=== PATIENT | male | born 1970 | race African-American/Black ===

== ENCOUNTER 2022-10-27 20:19 | Emergency (ER) | payer MEDICAID, OTHER ==
[~2022-10-27] VITALS: Ht 188 cm; Wt 118.6 kg
[2022-10-27] MEDS ORDERED: ASPIRIN 81MG TABLET PO ONE (21:15)
[2022-10-27 21:28] LABS: BASOPHILS % 0.6 % (0.0-2.0); EOSINOPHILS % 2.8 % (0.0-5.0); HEMATOCRIT. 42.2 % (42.0-52.0); HEMOGLOBIN. 14.2 g/dL (14.0-18.0); LYMPHOCYTES % 38.2 % (20.0-50.0); MEAN CORPUSCULAR HEMOGLOBIN 29.1 pg (28.0-32.0); MEAN CORPUSCULAR VOLUME 86.3 fL (80.0-94.0); MONOCYTES % 6.1 % (2.0-8.0); NEUTROPHILS % 52.3 % (40.0-76.0); PLATELET 261 x1000/uL (130-400); RED BLOOD CELL COUNT 4.89 mill/uL (4.7-6.1); RED CELL DISTRIBUTION WIDTH 13.6 % (11.6-14.6)
[2022-10-27 21:36] LABS: CHLORIDE 109 mEq/L (98-107)
[2022-10-27 21:45] LABS: ETHANOL BLOOD < 10 mg/dL
[2022-10-27 22:00] LABS: *AMPHETAMINES SCREEN URINE NEGATIVE (NEGATIVE); *BARBITURATES SCREEN URINE NEGATIVE (NEGATIVE); *BENZODIAZEPINES SCREEN URINE NEGATIVE (NEGATIVE); *COCAINE SCREEN URINE NEGATIVE (NEGATIVE); CANNABINOID URINE SCREEN NEGATIVE (NEGATIVE); METHADONE URINE SCREEN NEGATIVE (NEGATIVE); OPIATES URINE SCREEN NEGATIVE (NEGATIVE); PHENCYCLIDINE URINE SCREEN NEGATIVE (NEGATIVE)
[2022-10-27] MEDS ORDERED: IBUP-2029 MT (23:56)
[2022-10-27] MEDS ORDERED: BENZ200C52 MT (23:56)
[2022-10-28] VITALS: BP 139/79
== END 2022-10-28 00:05 | disposition home or self-care (01) ==
LOC: ER 20:19
DX: R07.89 Other chest pain (principal)
CPT/HCPCS: 36415; 71045; 80053; 80305; 80320; 83880; 84484; 85025; 93005; 99291; Z7610; G0480

== ENCOUNTER 2023-07-28 20:27 | Emergency (ER) | payer MEDICAID, OTHER ==
[~2023-07-28] VITALS: Ht 188 cm; Wt 112.0 kg
[~2023-07-28 20:27] MED LIST: BENZ200C52 MT; IBUP-2029 MT
[2023-07-28 21:37] VITALS: BP 231/114; PULSE 81; RESP 18; TEMP 99.4; O2SAT 100
[2023-07-28] MEDS ORDERED: KETOROLAC 15MG/ML VIAL IM ONE (22:00)
[2023-07-28] MEDS ORDERED: NAPR-1176 MT (23:06)
== END 2023-07-29 00:28 | disposition home or self-care (01) ==
LOC: ER 20:27
DX: M25.561 Pain in right knee (principal); E78.00 Pure hypercholesterolemia, unspecified; I10 Essential (primary) hypertension
CPT/HCPCS: 73562; 96372; 99283; J1885; Z7610 ×2

== ENCOUNTER 2024-06-12 10:01 | Emergency (ER) | payer MEDICAID ==
[~2024-06-12] VITALS: Ht 188 cm; Wt 113.3 kg
[~2024-06-12 10:01] MED LIST changes: +NAPR-1176 MT
[2024-06-12 10:40] VITALS: O2SAT 98
[2024-06-12] MEDS: KETOROLAC 15MG/ML VIAL IM ONE (11:23)
[2024-06-12] MEDS ORDERED: LIDO700A15 TP (11:58)
[2024-06-12 12:23] VITALS: BP 113/55; PULSE 78; RESP 18; TEMP 36.44736; O2SAT 99
== END 2024-06-12 12:24 | disposition home or self-care (01) ==
LOC: ER 10:18
DX: M79.672 Pain in left foot (principal); E78.00 Pure hypercholesterolemia, unspecified; I10 Essential (primary) hypertension; Z90.49 Acquired absence of other specified parts of digestive tract
CPT/HCPCS: 99283; 73630; 96372; J1885